=== PATIENT | female | born 1950 | race Hispanic/Latino ===

== ENCOUNTER 2022-08-01 09:20 | Observation (INO) | payer MEDICARE ==
[~2022-08-01] VITALS: Ht 149.9 cm; Wt 108.7 kg
[2022-08-01 00:03] VITALS: BP 135/73
[~2022-08-01 09:20] MED LIST: BUDE10.2 IH; DICY10 PO; FLUT16H NASAL; GEMF600T89 PO; HYDR25TA PO; INSLAN SQ; LEVO50TA11 PO; LISI40TA9 PO; METO100T14 PO; NITR0.4T50 SL; ROSU10TA22 PO; TRAM50TA4 PO; ZOLP10TA2 PO
[2022-08-01] MEDS ORDERED: NITROGLYCERIN 0.4 MG SL TAB SL PRN (10:00)
[2022-08-01] MEDS ORDERED: CLOPIDOGREL 300MG TAB PO ONE (10:00)
[2022-08-01 10:06] LABS: BASOPHILS % (AUTO) 0.9 % (0.0-5.0); EOSINOPHILS % (AUTO) 2.8 % (0.0-8.0); HEMATOCRIT 37.6 % (36-48); LYMPHOCYTES % (AUTO) 15.5 % (21.0-51.0); MEAN CORPUSCULAR HGB CONC 32.7 g/dL (32.0-36.0); MEAN CORPUSCULAR VOLUME 82.6 fL (79-99); MONOCYTES % (AUTO) 7.4 % (3.0-13.0); PLATELET COUNT (AUTO) 340 K/uL (130-400); RED BLOOD CELL COUNT(AUTO) 4.55 MIL/uL (4.00-5.50); RED CELL DISTRIBUTION WIDTH 14.1 % (11.0-15.5); WHITE BLOOD COUNT (AUTO) 9.1 K/uL (4.8-10.8)
[2022-08-01] MEDS ORDERED: METO25TA6 PO (10:07)
[2022-08-01] MEDS ORDERED: AMLO-258 PO (10:07)
[2022-08-01] MEDS ORDERED: SIMV40TA59 PO (10:07)
[2022-08-01] MEDS ORDERED: METF-446 PO (10:07)
[2022-08-01 10:17] LABS: CREATININE 1.2 mg/dL (0.5-1.5); POTASSIUM 3.4 mmol/L (3.5-5.1)
[2022-08-01 10:22] LABS: ALBUMIN 3.1 g/dL (3.5-5.0); TOTAL PROTEIN, SERUM 7.5 g/dL (6.0-8.3)
[2022-08-01 10:25] LABS: INR 0.98 (0.85-1.15); PROTHROMBIN TIME 10.7 SEC (9.6-11.6)
[2022-08-01 10:26] LABS: PARTIAL THROMBOPLASTIN TIME 26.8 SEC (26.3-35.5)
[2022-08-01] MEDS ORDERED: MAGNESIUM 2GM PREMIX 50ML 50 ML IV PRN (14:00)
[2022-08-01] MEDS ORDERED: POTASSIUM CHLORIDE 10% ELIXIR 20 MEQ/15 ML UDCUP PO PRN (14:00)
[2022-08-01] MEDS ORDERED: LIDOCAINE HCL-MPF 1% 2ML VIAL IV PRN (14:00)
[2022-08-01] MEDS ORDERED: KCL 20 MEQ ERTAB PO PRN (14:00)
[2022-08-01] MEDS ORDERED: POTASSIUM CHLORIDE 20MEQ/100ML 100 ML IV PRN (14:00)
[2022-08-01 16:00] VITALS: BP 137/77
[2022-08-01] MEDS: INSULIN HUMULIN R 100 UNIT/ML 3ML SQ SCH ×2 (18:10→22:03)
[2022-08-01 19:03] VITALS: BP 151/74
[2022-08-02 00:03] VITALS: BP 135/73
[2022-08-02 03:03] VITALS: BP 130/64
[2022-08-02 04:17] LABS: CHOLESTEROL 209 mg/dL (<200); HDL CHOLESTEROL 42 mg/dL (35-85); LDL DIRECT 133 mg/dL (0-99); TRIGLYCERIDES 231 mg/dL (30-200)
[2022-08-02] MEDS: INSULIN HUMULIN R 100 UNIT/ML 3ML SQ SCH ×4 (06:37→21:48)
[2022-08-02] MEDS: PREDNISONE 20 MG TABLET PO SCH ×2 (07:49→21:39)
[2022-08-02] MEDS: CLOPIDOGREL 75MG TAB PO SCH (07:49)
[2022-08-02 08:14] VITALS: BP 115/57
[2022-08-02 11:36] VITALS: BP 135/58
[2022-08-02 12:14] LABS: CREATININE 1.1 mg/dL (0.5-1.5); POTASSIUM 3.2 mmol/L (3.5-5.1)
[2022-08-02 13:00] LABS: ABG BASE EXCESS -2.9 mmol/L (-2.0-3.0); ABG HCO3 19.2 mmol/L (21.0-28.0); ABG OXYGEN SATURATION 96.3 % (95.0-99.0); ABG PCO2 27 mmHg (32-45)
[2022-08-02 14:31] LABS: APPEARANCE,URINE CLOUDY (CLEAR); BILIRUBIN,URINE NEGATIVE (NEGATIVE); COLOR,URINE YELLOW (YELLOW); GLUCOSE, URINE (UA) >=1000 mg/dL (NEGATIVE); KETONES,URINE 40 mg/dL (NEGATIVE); LEUKOCYTE ESTERASE ,URINE NEGATIVE Leu/uL (NEGATIVE); NITRATE,URINE NEGATIVE (NEGATIVE); OCCULT BLOOD,URINE NEGATIVE (NEGATIVE); PROTEIN,URINE 20 mg/dL (NEGATIVE); UROBILINOGEN,URINE 0.2 mg/dL (0.2-1.0)
[2022-08-02 14:56] LABS: BACTERIA,URINE RARE /HPF (None Seen); MUCUS,URINE RARE LPF (None Seen); SQUAMOUS EPITHELIAL CELL,UR MOD /HPF (0-2); URIC ACID CRYSTALS,URINE RARE /LPF (None Seen)
[2022-08-02 15:59] VITALS: BP 161/98
[2022-08-02 21:00] VITALS: BP 155/71
[2022-08-02] MEDS: INSULIN GLARGINE 100 UNITS/ML 10 ML VIAL SQ SCH (21:45)
[2022-08-03] VITALS (14 sets, daily range): BP systolic 100–147; BP diastolic 47–94
[2022-08-03] MEDS: INSULIN GLARGINE 100 UNITS/ML 10 ML VIAL SQ SCH ×2 (07:30→20:08)
[2022-08-03] MEDS: INSULIN HUMULIN R 100 UNIT/ML 3ML SQ SCH ×4 (07:31→20:07)
[2022-08-03] MEDS: METOPROLOL TARTRATE 25 MG TAB PO SCH (09:00)
[2022-08-03] MEDS: PREDNISONE 20 MG TABLET PO SCH ×2 (09:00→20:16)
[2022-08-03] MEDS: FAMOTIDINE 20MG TAB PO SCH (09:00)
[2022-08-03] MEDS: ENOXAPARIN SODIUM 30 MG/0.3 ML SQ SCH (09:00)
[2022-08-03] MEDS: CLOPIDOGREL 75MG TAB PO SCH (09:00)
[2022-08-03] MEDS ORDERED: SOLU-MEDROL 125MG VIAL IVP SCH (10:00)
[2022-08-03] MEDS ORDERED: DIPHENHYDRAMINE HCL 25 MG CAPSULE PO SCH (10:00)
[2022-08-03] MEDS: DiphenhydrAMINE HCL 50 MG/ML VIAL IV SCH (10:00)
[2022-08-03] MEDS ORDERED: SODIUM CHLORIDE 30 ML DROPS NS PRN (12:00)
[2022-08-03] MEDS ORDERED: NICARDIPINE 25MG INJ IV ONE (13:43)
[2022-08-03] MEDS ORDERED: IOHEXOL-350 50ML VIAL IV ONE (13:43)
[2022-08-03] MEDS ORDERED: NITROGLYCERIN 50MG VIAL ONE (13:43)
[2022-08-03] MEDS ORDERED: LIDOCAINE HCL 1% 20 ML VIAL ONE (13:43)
[2022-08-03] MEDS ORDERED: HEPARIN 10,000 UNIT/10ML (1,000 UNIT/ML) VIAL ONE (13:43)
[2022-08-03] MEDS ORDERED: IOHEXOL 350 MG/ML 100ML INFUS..BTL IV ONE (13:43)
[2022-08-03] MEDS ORDERED: FENTANYL CITRATE PF 50 MCG/1 ML 2ML VIAL ONE ×2 (13:44→14:25)
[2022-08-03] MEDS ORDERED: MIDAZOLAM HCL 1 MG/ML 2ML VIAL ONE (13:44)
[2022-08-03] MEDS ORDERED: KETOROLAC 30MG VIAL (30MG/ML) ONE (14:31)
[2022-08-03] MEDS ORDERED: LABETALOL 20MG SYG IV ONE ×5 (14:31→14:41)
[2022-08-03] MEDS ORDERED: KETOROLAC 15MG/ML VIAL (15MG/ML) ONE (14:32)
[2022-08-03] MEDS ORDERED: ONDANSETRON 4MG INJ ONE (14:32)
[2022-08-03] MEDS ORDERED: LABETALOL 20MG VIAL IV ONE (14:42)
[2022-08-03] MEDS ORDERED: 0.9%NACL 1000ML 1,000 ML IV SCH (15:00)
[2022-08-03] MEDS: FLUTICASONE PROPIONATE 50MCG/SPRAY 16 GM BOTTLE EN SCH (20:16)
[2022-08-03] MEDS: GUAIFENESIN 600 MG TABLET.ER PO SCH (20:16)
[2022-08-04 03:29] LABS: HEMATOCRIT 32.4 % (36-48); MEAN CORPUSCULAR HEMOGLOBIN 27.5 pg (27.0-33.0); MEAN CORPUSCULAR HGB CONC 32.7 g/dL (32.0-36.0); MEAN CORPUSCULAR VOLUME 83.9 fL (79-99); RED BLOOD CELL COUNT(AUTO) 3.86 MIL/uL (4.00-5.50); RED CELL DISTRIBUTION WIDTH 14.6 % (11.0-15.5); WHITE BLOOD COUNT (AUTO) 9.6 K/uL (4.8-10.8)
[2022-08-04 03:46] LABS: CREATININE 1.5 mg/dL (0.5-1.5); MAGNESIUM 1.6 mg/dL (1.80-2.40); PHOSPHORUS 3.8 mg/dL (2.5-4.9); POTASSIUM 4.7 mmol/L (3.5-5.1)
[2022-08-04] MEDS ORDERED: INSULIN HUMULIN R 100 UNIT/ML 3ML SQ ONE (04:18)
[2022-08-04] MEDS ORDERED: MAGNESIUM 2GM PREMIX 50ML 50 ML IV PRN (04:30)
[2022-08-04 05:00] VITALS: BP 101/67
[2022-08-04] MEDS: INSULIN HUMULIN R 100 UNIT/ML 3ML SQ SCH ×2 (06:23→11:14)
[2022-08-04] MEDS: INSULIN GLARGINE 100 UNITS/ML 10 ML VIAL SQ SCH (06:24)
[2022-08-04] MEDS: DiphenhydrAMINE HCL 50 MG/ML VIAL IV SCH (07:23)
[2022-08-04] MEDS ORDERED: INSULIN GLARGINE 100 UNITS/ML 10 ML VIAL SQ SCH (07:30)
[2022-08-04 08:00] VITALS: BP 130/73
[2022-08-04] MEDS: FAMOTIDINE 20MG TAB PO SCH (09:01)
[2022-08-04] MEDS: CLOPIDOGREL 75MG TAB PO SCH (09:01)
[2022-08-04] MEDS: PREDNISONE 20 MG TABLET PO SCH (09:02)
[2022-08-04] MEDS: GUAIFENESIN 600 MG TABLET.ER PO SCH (09:02)
[2022-08-04] MEDS: METOPROLOL TARTRATE 25 MG TAB PO SCH (09:02)
[2022-08-04] MEDS: ENOXAPARIN SODIUM 30 MG/0.3 ML SQ SCH (09:05)
[2022-08-04] MEDS: FLUTICASONE PROPIONATE 50MCG/SPRAY 16 GM BOTTLE EN SCH (09:06)
[2022-08-04 11:23] VITALS: BP 158/81
== END 2022-08-04 12:02 | disposition home or self-care (01) ==
LOC: EDH 09:20 → DIRECT 10:14 → INTOOBSV 10:14 → 2AH 14:55
PROVIDERS: ADMIT Internal Medicine; ATTEND Internal Medicine
DX: R06.00 Dyspnea, unspecified (principal); R00.2 Palpitations; R42 Dizziness and giddiness; I10 Essential (primary) hypertension; E78.5 Hyperlipidemia, unspecified; E11.65 Type 2 diabetes mellitus with hyperglycemia; G47.33 Obstructive sleep apnea (adult) (pediatric); J44.9 Chronic obstructive pulmonary disease, unspecified; E66.01 Morbid (severe) obesity due to excess calories; I26.99 Other pulmonary embolism without acute cor pulmonale; W06.XXXA Fall from bed, initial encounter; Y93.89 Activity, other specified; Y92.89 Other specified places as the place of occurrence of the external cause; Z68.42 Body mass index [BMI] 45.0-49.9, adult; Z88.1 Allergy status to other antibiotic agents; Z91.199 Patient's noncompliance with other medical treatment and regimen due to unspecified reason; Z79.899 Other long term (current) drug therapy
CPT/HCPCS: 84484; 80053; 85025; 85610; 85730; 82948 ×14; 36415 ×3; 71045; 93306; 93005; 83036; 82435; 82947; 84132; 84295; 80061; 80048 ×2; 82803; 83880; 85378; 85018; 87088; 83605; 81001; 73030; 78580; 93970; 36600; 93458; 96365; 96366; 96372; 83735; 84100; 85027; 71250; 97161; 97116; 94760; G0378 ×70; J1815 ×12; A9540; C1887; C1894 ×3; C1760; C1769; Q9965; J1200; J3010 ×2; J2930; J3490 ×3; J1644 ×2; J2250; J2405; J1885; Q9967; J3475; J1650; 99156; 99157

== ENCOUNTER 2022-10-17 15:46 | Emergency (ER) | payer MEDICARE, OTHER ==
[~2022-10-17] VITALS: Ht 149.9 cm; Wt 98.0 kg
[~2022-10-17 15:46] MED LIST changes: -BUDE10.2 IH; -DICY10 PO; -FLUT16H NASAL; -GEMF600T89 PO; -HYDR25TA PO; -INSLAN SQ; -LEVO50TA11 PO; -LISI40TA9 PO; +METF-446 PO; -METO100T14 PO; +METO25TA6 PO; -NITR0.4T50 SL; -ROSU10TA22 PO; +SIMV40TA59 PO; -TRAM50TA4 PO; -ZOLP10TA2 PO
[2022-10-17 16:01] VITALS: BP 152/72
[2022-10-17 17:02] LABS: BASOPHILS % (AUTO) 0.5 % (0.0-5.0); EOSINOPHILS % (AUTO) 1.4 % (0.0-8.0); HEMATOCRIT 43.4 % (36-48); LYMPHOCYTES % (AUTO) 16.9 % (21.0-51.0); MEAN CORPUSCULAR HEMOGLOBIN 26.4 pg (27.0-33.0); MEAN CORPUSCULAR VOLUME 82.4 fL (79-99); MONOCYTES % (AUTO) 9.2 % (3.0-13.0); NEUTROPHILS % (AUTO) 71.5 % (40.0-77.0); PLATELET COUNT (AUTO) 413 K/uL (130-400); RED BLOOD CELL COUNT(AUTO) 5.27 MIL/uL (4.00-5.50); RED CELL DISTRIBUTION WIDTH 14.4 % (11.0-15.5); WHITE BLOOD COUNT (AUTO) 9.7 K/uL (4.8-10.8)
[2022-10-17 17:15] LABS: CREATININE 1.3 mg/dL (0.5-1.5); POTASSIUM 3.4 mmol/L (3.5-5.1)
[2022-10-17 17:19] LABS: ALBUMIN 3.1 g/dL (3.5-5.0); TOTAL PROTEIN, SERUM 7.1 g/dL (6.0-8.3)
[2022-10-17] MEDS ORDERED: 0.9%NACL 1000ML 1,000 ML IV ONE (18:30)
[2022-10-17] MEDS ORDERED: MORPHINE 4 MG SYG IVP ONE (18:30)
[2022-10-17] MEDS ORDERED: ONDANSETRON 4MG INJ IVP ONE (18:30)
[2022-10-17] MEDS ORDERED: FAMOTIDINE 20MG VIAL IV ONE (18:30)
[2022-10-17] MEDS ORDERED: DiphenhydrAMINE HCL 50 MG/ML VIAL IV ONE (20:30)
[2022-10-17] MEDS ORDERED: METOCLOPRAMIDE 10 MG/2 ML VIAL IVP ONE (20:30)
[2022-10-17 21:30] LABS: APPEARANCE,URINE CLOUDY (CLEAR); BILIRUBIN,URINE NEGATIVE (NEGATIVE); COLOR,URINE YELLOW (YELLOW); GLUCOSE, URINE (UA) NEGATIVE (NEGATIVE); KETONES,URINE 10 mg/dL (NEGATIVE); LEUKOCYTE ESTERASE ,URINE 250 Leu/uL (NEGATIVE); NITRATE,URINE NEGATIVE (NEGATIVE); OCCULT BLOOD,URINE NEGATIVE (NEGATIVE); PH,URINE 5.5 (5.0-8.0); PROTEIN,URINE 50 mg/dL (NEGATIVE)
[2022-10-17] MEDS ORDERED: 0.9% NACL 250ML 250 ML IV ONE (21:30)
[2022-10-17 21:34] LABS: BACTERIA,URINE MOD /HPF (None Seen); HYALINE CASTS, URINE 26-50 /LPF (0-1 /LPF); MUCUS,URINE MANY LPF (None Seen); SQUAMOUS EPITHELIAL CELL,UR MANY /HPF (0-2); TRANSITIONAL EPI CELLS,URINE RARE /HPF (None Seen)
[2022-10-17] MEDS ORDERED: ONDA4TAB10 PO (21:48)
[2022-10-17] MEDS ORDERED: MACR100 PO (21:48)
[2022-10-17] MEDS ORDERED: NITROFURANTOIN MONOHYD/M-CRYST 100 MG CAPSULE PO ONE (22:00)
== END 2022-10-17 22:01 | disposition home or self-care (01) ==
LOC: EDH 15:46
DX: N39.0 Urinary tract infection, site not specified (principal); R11.2 Nausea with vomiting, unspecified; R19.7 Diarrhea, unspecified; E11.9 Type 2 diabetes mellitus without complications; E78.00 Pure hypercholesterolemia, unspecified; Z90.49 Acquired absence of other specified parts of digestive tract; Z79.899 Other long term (current) drug therapy; Z79.84 Long term (current) use of oral hypoglycemic drugs; Z88.1 Allergy status to other antibiotic agents; Z88.2 Allergy status to sulfonamides; Z88.8 Allergy status to other drugs, medicaments and biological substances; Z20.822 Contact with and (suspected) exposure to COVID-19
CPT/HCPCS: 99285; 74176; 96374; 96375; 96361; 87635; 80053; 83690; 85025; 87088; 87804 ×2; 81001; 36415; C9803; J1200; J3490; J7030; J2405; J2270; J2765; J7050

== ENCOUNTER 2022-10-22 07:07 | Inpatient (IN) | payer OTHER ==
[~2022-10-22] VITALS: Ht 149.9 cm; Wt 100.2 kg
[~2022-10-22 07:07] MED LIST changes: +MACR100 PO; +ONDA4TAB10 PO
[2022-10-22] MEDS ORDERED: ONDANSETRON 4MG INJ IVP ONE (07:30)
[2022-10-22] MEDS ORDERED: 0.9%NACL 1000ML 1,000 ML IV ONE (07:30)
[2022-10-22 07:41] LABS: EOSINOPHILS % (AUTO) 1.7 % (0.0-8.0); HEMATOCRIT 40.7 % (36-48); MEAN CORPUSCULAR HEMOGLOBIN 25.9 pg (27.0-33.0); MEAN CORPUSCULAR HGB CONC 32.2 g/dL (32.0-36.0); MEAN CORPUSCULAR VOLUME 80.6 fL (79-99); MONOCYTES % (AUTO) 14.2 % (3.0-13.0); NEUTROPHILS % (AUTO) 53.5 % (40.0-77.0); PLATELET COUNT (AUTO) 379 K/uL (130-400); RED BLOOD CELL COUNT(AUTO) 5.05 MIL/uL (4.00-5.50); RED CELL DISTRIBUTION WIDTH 14.8 % (11.0-15.5)
[2022-10-22] MEDS: BENZONATATE 100 MG CAPSULE PO SCH (08:14)
[2022-10-22 08:21] LABS: ALBUMIN 2.8 g/dL (3.5-5.0); CREATININE 1.4 mg/dL (0.5-1.5)
[2022-10-22 08:30] LABS: POTASSIUM 2.7 mmol/L (3.5-5.1)
[2022-10-22 08:36] LABS: TOTAL PROTEIN, SERUM 6.7 g/dL (6.0-8.3)
[2022-10-22] MEDS ORDERED: 0.9%NACL 1000ML 1,000 ML IV SCH ×2 (09:00→11:30)
[2022-10-22] MEDS ORDERED: POTASSIUM CHLORIDE 20 MEQ/100 ML BAG IV SCH (09:00)
[2022-10-22] MEDS ORDERED: FENTANYL CITRATE PF 50 MCG/1 ML 2ML VIAL IVP ONE (09:00)
[2022-10-22] MEDS ORDERED: ACETAMINOPHEN 325 MG TAB PO PRN ×2 (11:30)
[2022-10-22] MEDS ORDERED: HYDRALAZINE 20MG/ML VIAL IV PRN (13:30)
[2022-10-22] MEDS ORDERED: LIDOCAINE HCL-MPF 1% 2ML VIAL IV PRN (13:30)
[2022-10-22] MEDS ORDERED: MAGNESIUM 2GM PREMIX 50ML 50 ML IV PRN (13:30)
[2022-10-22] MEDS ORDERED: MORPHINE 2 MG SYG IVP PRN (13:30)
[2022-10-22] MEDS ORDERED: DEXTROSE 50%-WATER 50 ML DISP.SYRIN IV PRN (13:30)
[2022-10-22] MEDS ORDERED: GLUCAGON 1MG KIT 1 MG ML IM PRN (13:30)
[2022-10-22] MEDS: ONDANSETRON 4MG INJ IV PRN ×2 (13:41→22:35)
[2022-10-22] MEDS: POTASSIUM CHLORIDE 20MEQ/100ML 100 ML IV PRN (13:42)
[2022-10-22] MEDS: 0.9%NACL 1000ML 1,000 ML IV SCH (13:43)
[2022-10-22] MEDS ORDERED: METOCLOPRAMIDE 10 MG/2 ML VIAL ONE (14:40)
[2022-10-22] MEDS: METOCLOPRAMIDE 10 MG/2 ML VIAL IVP SCH (14:42)
[2022-10-22 15:00] VITALS: BP 143/71
[2022-10-22] MEDS: INSULIN HUMULIN R 100 UNIT/ML 3ML SQ SCH ×2 (16:30→20:47)
[2022-10-22 20:00] VITALS: BP 147/68
[2022-10-22] MEDS ORDERED: FAMOTIDINE 20MG VIAL IV SCH (21:00)
[2022-10-23] VITALS: BP 162/96
[2022-10-23] MEDS: 0.9%NACL 1000ML 1,000 ML IV SCH (02:20)
[2022-10-23 04:00] VITALS: BP 153/83
[2022-10-23] MEDS: INSULIN HUMULIN R 100 UNIT/ML 3ML SQ SCH ×4 (06:07→21:00)
[2022-10-23] MEDS: METOCLOPRAMIDE 10 MG/2 ML VIAL IVP SCH ×3 (06:21→17:28)
[2022-10-23 06:59] LABS: EOSINOPHILS % (AUTO) 3.6 % (0.0-8.0); HEMATOCRIT 37.1 % (36-48); LYMPHOCYTES % (AUTO) 23.6 % (21.0-51.0); MEAN CORPUSCULAR HEMOGLOBIN 26.4 pg (27.0-33.0); MEAN CORPUSCULAR HGB CONC 31.5 g/dL (32.0-36.0); MEAN CORPUSCULAR VOLUME 83.7 fL (79-99); NEUTROPHILS % (AUTO) 60.2 % (40.0-77.0); PLATELET COUNT (AUTO) 296 K/uL (130-400); RED BLOOD CELL COUNT(AUTO) 4.43 MIL/uL (4.00-5.50); RED CELL DISTRIBUTION WIDTH 15.1 % (11.0-15.5); WHITE BLOOD COUNT (AUTO) 6.8 K/uL (4.8-10.8)
[2022-10-23 07:18] LABS: ALBUMIN 2.4 g/dL (3.5-5.0); CREATININE 1.1 mg/dL (0.5-1.5); TOTAL PROTEIN, SERUM 5.6 g/dL (6.0-8.3)
[2022-10-23 07:25] LABS: POTASSIUM 2.9 mmol/L (3.5-5.1)
[2022-10-23 08:00] VITALS: BP 146/79
[2022-10-23] MEDS: BENZONATATE 100 MG CAPSULE PO SCH (08:30)
[2022-10-23] MEDS: ENOXAPARIN SODIUM 30 MG/0.3 ML SQ SCH (09:00)
[2022-10-23] MEDS: PANTOPRAZOLE 40 MG/VIAL IVP SCH (10:16)
[2022-10-23 12:00] VITALS: BP 161/79
[2022-10-23 14:56] LABS: APPEARANCE,URINE CLOUDY (CLEAR); BILIRUBIN,URINE NEGATIVE (NEGATIVE); COLOR,URINE YELLOW (YELLOW); GLUCOSE, URINE (UA) NEGATIVE (NEGATIVE); KETONES,URINE 20 mg/dL (NEGATIVE); LEUKOCYTE ESTERASE ,URINE NEGATIVE Leu/uL (NEGATIVE); NITRATE,URINE NEGATIVE (NEGATIVE); OCCULT BLOOD,URINE NEGATIVE (NEGATIVE); PROTEIN,URINE 10 mg/dL (NEGATIVE); UROBILINOGEN,URINE 0.2 mg/dL (0.2-1.0)
[2022-10-23 15:00] LABS: BACTERIA,URINE RARE /HPF (None Seen); MUCUS,URINE RARE LPF (None Seen); SQUAMOUS EPITHELIAL CELL,UR FEW /HPF (0-2)
[2022-10-23 16:00] VITALS: BP 183/84
[2022-10-23] MEDS: [UNRECOGNIZED DRUG - OTHER] IV SCH (16:45)
[2022-10-23] MEDS: POTASSIUM CHLORIDE IV SCH (16:45)
[2022-10-23] MEDS: METOPROLOL TARTRATE 25 MG TAB PO SCH (17:28)
[2022-10-23 21:28] VITALS: BP 153/66
[2022-10-23] MEDS: ONDANSETRON 4MG INJ IV PRN (22:58)
[2022-10-24 00:28] VITALS: BP_SYST 137; BP_SYST 94; BP_DIAS 56; BP_DIAS 57
[2022-10-24 05:28] VITALS: BP 148/64
[2022-10-24 05:59] LABS: BASOPHILS % (AUTO) 0.6 % (0.0-5.0); EOSINOPHILS % (AUTO) 2.1 % (0.0-8.0); HEMATOCRIT 35.2 % (36-48); MEAN CORPUSCULAR HEMOGLOBIN 26.2 pg (27.0-33.0); MEAN CORPUSCULAR HGB CONC 32.1 g/dL (32.0-36.0); MEAN CORPUSCULAR VOLUME 81.5 fL (79-99); MONOCYTES % (AUTO) 9.5 % (3.0-13.0); NEUTROPHILS % (AUTO) 66.1 % (40.0-77.0); PLATELET COUNT (AUTO) 298 K/uL (130-400); RED BLOOD CELL COUNT(AUTO) 4.32 MIL/uL (4.00-5.50); RED CELL DISTRIBUTION WIDTH 15.2 % (11.0-15.5); WHITE BLOOD COUNT (AUTO) 8.9 K/uL (4.8-10.8)
[2022-10-24] MEDS: METOCLOPRAMIDE 10 MG/2 ML VIAL IVP SCH ×3 (06:20→17:00)
[2022-10-24] MEDS: INSULIN HUMULIN R 100 UNIT/ML 3ML SQ SCH ×4 (06:21→21:00)
[2022-10-24 08:00] VITALS: BP 158/72
[2022-10-24 08:18] LABS: ALBUMIN 2.3 g/dL (3.5-5.0); CRP QUANTITATIVE 49.7 mg/L (0.00-9.0); MAGNESIUM 1.5 mg/dL (1.80-2.40); TOTAL PROTEIN, SERUM 5.4 g/dL (6.0-8.3)
[2022-10-24 08:21] LABS: POTASSIUM 2.7 mmol/L (3.5-5.1)
[2022-10-24] MEDS: BENZONATATE 100 MG CAPSULE PO SCH (08:30)
[2022-10-24] MEDS: PANTOPRAZOLE 40 MG/VIAL IVP SCH (10:35)
[2022-10-24] MEDS: METOPROLOL TARTRATE 25 MG TAB PO SCH (10:35)
[2022-10-24] MEDS: ENOXAPARIN SODIUM 30 MG/0.3 ML SQ SCH (10:35)
[2022-10-24 12:00] VITALS: BP 148/68
[2022-10-24] MEDS ORDERED: KCL 20 MEQ ERTAB PO SCH (12:30)
[2022-10-24 16:00] VITALS: BP 159/55
[2022-10-24 19:30] VITALS: BP 146/56
[2022-10-24] MEDS: POTASSIUM CHLORIDE 20MEQ/100ML 100 ML IV PRN (21:19)
[2022-10-25] VITALS (26 sets, daily range): BP systolic 123–193; BP diastolic 48–129
[2022-10-25] MEDS: POTASSIUM CHLORIDE IV SCH (04:22)
[2022-10-25] MEDS: [UNRECOGNIZED DRUG - OTHER] IV SCH (04:22)
[2022-10-25] MEDS: INSULIN HUMULIN R 100 UNIT/ML 3ML SQ SCH ×3 (05:39→16:30)
[2022-10-25] MEDS ORDERED: LIDOCAINE PF 100MG/5ML (2%) SYRINGE 5ML ONE (07:03)
[2022-10-25] MEDS ORDERED: PROPOFOL 10 MG/ML 20ML VIAL IV ONE (07:03)
[2022-10-25] MEDS ORDERED: SUCCINYLCHOLINE 200MG/10ML SYR ONE (07:03)
[2022-10-25 07:19] LABS: PROTHROMBIN TIME 10.9 SEC (9.6-11.6)
[2022-10-25 07:20] LABS: PARTIAL THROMBOPLASTIN TIME 28.5 SEC (26.3-35.5)
[2022-10-25 07:21] LABS: ALBUMIN 2.3 g/dL (3.5-5.0); CREATININE 0.9 mg/dL (0.5-1.5); MAGNESIUM 1.3 mg/dL (1.80-2.40); POTASSIUM 3.2 mmol/L (3.5-5.1); TOTAL PROTEIN, SERUM 5.7 g/dL (6.0-8.3)
[2022-10-25] MEDS ORDERED: MEPERIDINE-PF 25 MG/ML SYG ONE (08:09)
[2022-10-25] MEDS ORDERED: KCL 20 MEQ ERTAB PO ONE (09:23)
[2022-10-25] MEDS: METOCLOPRAMIDE 10 MG/2 ML VIAL IVP SCH ×3 (09:25→17:24)
[2022-10-25] MEDS: PANTOPRAZOLE 40 MG/VIAL IVP SCH (09:25)
[2022-10-25] MEDS: METOPROLOL TARTRATE 25 MG TAB PO SCH (09:26)
[2022-10-25] MEDS: BENZONATATE 100 MG CAPSULE PO SCH (09:26)
[2022-10-25] MEDS: ENOXAPARIN SODIUM 30 MG/0.3 ML SQ SCH (09:28)
[2022-10-25] MEDS ORDERED: KCL 20 MEQ ERTAB PO PRN (09:30)
[2022-10-25] MEDS ORDERED: POTASSIUM CHLORIDE 20MEQ/100ML 100 ML IV PRN (09:30)
[2022-10-25] MEDS ORDERED: LIDOCAINE HCL-MPF 1% 2ML VIAL IV PRN (09:30)
[2022-10-25] MEDS ORDERED: POTASSIUM CHLORIDE 10% ELIXIR 20 MEQ/15 ML UDCUP PO PRN (09:30)
[2022-10-25] MEDS ORDERED: 0.9%NACL 1000ML 1,000 ML IV ONE (10:16)
[2022-10-25] MEDS ORDERED: METO10TA3 PO (13:15)
== END 2022-10-25 18:53 | disposition home or self-care (01) | DRG 73 ==
LOC: EDH 07:07 → EDHIP 11:27 → 3DH 14:24
PROVIDERS: ADMIT Hospitalist; ATTEND Hospitalist
PROC: 0DB68ZX Excision of Stomach, Via Natural or Artificial Opening Endoscopic, Diagnostic (ICD-10-PCS; principal; 2022-10-25)
DX: E11.43 Type 2 diabetes mellitus with diabetic autonomic (poly)neuropathy (principal); E43 Unspecified severe protein-calorie malnutrition; Z68.41 Body mass index [BMI] 40.0-44.9, adult; N39.0 Urinary tract infection, site not specified; E87.6 Hypokalemia; E83.42 Hypomagnesemia; Z20.822 Contact with and (suspected) exposure to COVID-19; K29.70 Gastritis, unspecified, without bleeding; K44.9 Diaphragmatic hernia without obstruction or gangrene; E11.65 Type 2 diabetes mellitus with hyperglycemia; E66.01 Morbid (severe) obesity due to excess calories; K31.84 Gastroparesis; E78.00 Pure hypercholesterolemia, unspecified; M19.90 Unspecified osteoarthritis, unspecified site; E86.0 Dehydration; Z83.3 Family history of diabetes mellitus; Z82.49 Family history of ischemic heart disease and other diseases of the circulatory system; Z79.4 Long term (current) use of insulin; Z88.2 Allergy status to sulfonamides; Z88.8 Allergy status to other drugs, medicaments and biological substances
CPT/HCPCS: 36415; 43239; 71045; 74018; 74176; 78264; 80053; 81001; 82010; 82550; 82948; 83735; 83874; 84132; 84484; 85025; 85610; 85730; 86140; 87635; 87804; 93005; A9541; C9113; C9803; G0378; J0330; J0360; J1650; J2001; J2175; J2405; J2704; J2765; J3010; J3475; J3480; J3490; J7030

== ENCOUNTER 2022-10-26 15:11 | Inpatient (IN) | payer OTHER ==
[~2022-10-26] VITALS: Ht 149.9 cm; Wt 100.3 kg
[~2022-10-26 15:11] MED LIST changes: -MACR100 PO; +METO10TA3 PO
[2022-10-26] MEDS ORDERED: METOCLOPRAMIDE 10 MG/2 ML VIAL IVP ONE (16:00)
[2022-10-26 16:05] LABS: BASOPHILS % (AUTO) 0.7 % (0.0-5.0); EOSINOPHILS % (AUTO) 1.7 % (0.0-8.0); HEMATOCRIT 37.6 % (36-48); LYMPHOCYTES % (AUTO) 15.5 % (21.0-51.0); MEAN CORPUSCULAR HEMOGLOBIN 26.5 pg (27.0-33.0); MEAN CORPUSCULAR HGB CONC 32.4 g/dL (32.0-36.0); MEAN CORPUSCULAR VOLUME 81.7 fL (79-99); MONOCYTES % (AUTO) 9.5 % (3.0-13.0); NEUTROPHILS % (AUTO) 72.1 % (40.0-77.0); PLATELET COUNT (AUTO) 275 K/uL (130-400); RED CELL DISTRIBUTION WIDTH 15.4 % (11.0-15.5); WHITE BLOOD COUNT (AUTO) 7.7 K/uL (4.8-10.8)
[2022-10-26 16:13] LABS: CREATININE 0.9 mg/dL (0.5-1.5); POTASSIUM 3.1 mmol/L (3.5-5.1)
[2022-10-26 16:25] LABS: ALBUMIN 2.4 g/dL (3.5-5.0); TOTAL PROTEIN, SERUM 5.7 g/dL (6.0-8.3)
[2022-10-26 16:42] LABS: APPEARANCE,URINE CLEAR (CLEAR); BILIRUBIN,URINE NEGATIVE (NEGATIVE); COLOR,URINE LIGHT-YELLOW (YELLOW); GLUCOSE, URINE (UA) NEGATIVE (NEGATIVE); KETONES,URINE 10 mg/dL (NEGATIVE); LEUKOCYTE ESTERASE ,URINE NEGATIVE Leu/uL (NEGATIVE); NITRATE,URINE NEGATIVE (NEGATIVE); OCCULT BLOOD,URINE NEGATIVE (NEGATIVE); PH,URINE 6.5 (5.0-8.0); PROTEIN,URINE NEGATIVE (NEGATIVE); UROBILINOGEN,URINE 0.2 mg/dL (0.2-1.0)
[2022-10-26 17:00] LABS: MUCUS,URINE RARE LPF (None Seen); SQUAMOUS EPITHELIAL CELL,UR RARE /HPF (0-2); WBC,URINE 0-1 /HPF (0-1)
[2022-10-26] MEDS ORDERED: KCL 20 MEQ ERTAB PO ONE (17:00)
[2022-10-26] MEDS: MAGNESIUM 2GM PREMIX 50ML 50 ML IV SCH ×3 (17:28→22:27)
[2022-10-26] MEDS ORDERED: GLUCAGON 1MG KIT 1 MG ML IM PRN (20:00)
[2022-10-26] MEDS ORDERED: DEXTROSE 50%-WATER 50 ML DISP.SYRIN IV PRN (20:00)
[2022-10-26] MEDS: 0.9%NACL 1000ML 1,000 ML IV SCH ×2 (20:02→21:57)
[2022-10-26] MEDS: INSULIN HUMULIN R 100 UNIT/ML 3ML SQ SCH (20:08)
[2022-10-26 21:40] VITALS: BP 173/80
[2022-10-26 23:56] VITALS: BP 129/64
[2022-10-27] MEDS ORDERED: NALO25TA4 PO (02:12)
[2022-10-27] MEDS ORDERED: AMLO-258 PO (02:12)
[2022-10-27] MEDS ORDERED: LISI40TA9 PO (02:12)
[2022-10-27 03:34] VITALS: BP 152/68
[2022-10-27 05:24] LABS: BASOPHILS % (AUTO) 0.5 % (0.0-5.0); EOSINOPHILS % (AUTO) 1.7 % (0.0-8.0); HEMATOCRIT 35.9 % (36-48); LYMPHOCYTES % (AUTO) 16.9 % (21.0-51.0); MEAN CORPUSCULAR HEMOGLOBIN 26.1 pg (27.0-33.0); MEAN CORPUSCULAR VOLUME 81.4 fL (79-99); MONOCYTES % (AUTO) 9.3 % (3.0-13.0); NEUTROPHILS % (AUTO) 71.1 % (40.0-77.0); PLATELET COUNT (AUTO) 302 K/uL (130-400); RED BLOOD CELL COUNT(AUTO) 4.41 MIL/uL (4.00-5.50); RED CELL DISTRIBUTION WIDTH 15.4 % (11.0-15.5); WHITE BLOOD COUNT (AUTO) 7.8 K/uL (4.8-10.8)
[2022-10-27 06:15] LABS: ALBUMIN 2.2 g/dL (3.5-5.0); CREATININE 0.9 mg/dL (0.5-1.5); MAGNESIUM 2.5 mg/dL (1.80-2.40); POTASSIUM 3.4 mmol/L (3.5-5.1); TOTAL PROTEIN, SERUM 5.4 g/dL (6.0-8.3)
[2022-10-27] MEDS: INSULIN HUMULIN R 100 UNIT/ML 3ML SQ SCH ×5 (06:33→20:07)
[2022-10-27 08:00] VITALS: BP 124/74
[2022-10-27] MEDS: PANTOPRAZOLE 40 MG/VIAL IVP SCH (08:37)
[2022-10-27] MEDS: ENOXAPARIN SODIUM 40 MG/0.4 ML SYRINGE SQ SCH (08:37)
[2022-10-27] MEDS ORDERED: POTASSIUM CHLORIDE 10% ELIXIR 20 MEQ/15 ML UDCUP PO PRN (09:00)
[2022-10-27] MEDS ORDERED: POTASSIUM CHLORIDE 20MEQ/100ML 100 ML IV PRN (09:00)
[2022-10-27] MEDS ORDERED: LIDOCAINE HCL-MPF 1% 2ML VIAL IV PRN (09:00)
[2022-10-27] MEDS ORDERED: METOCLOPRAMIDE 10 MG TABLET PO SCH (11:30)
[2022-10-27] MEDS: AMLODIPINE 5 MG TAB PO SCH (11:35)
[2022-10-27] MEDS: LISINOPRIL 40 MG TABLET PO SCH (11:35)
[2022-10-27] MEDS: KCL 20 MEQ ERTAB PO PRN ×2 (11:36→15:19)
[2022-10-27 11:39] VITALS: BP 169/72
[2022-10-27] MEDS: METOCLOPRAMIDE 10 MG TABLET PO SCH ×2 (12:00→16:47)
[2022-10-27 15:00] VITALS: BP 124/55
[2022-10-27 19:20] VITALS: BP 138/55
[2022-10-27] MEDS: ACETAMINOPHEN 325 MG TAB PO PRN (20:10)
[2022-10-27 23:07] VITALS: BP 115/80
[2022-10-28] MEDS: ONDANSETRON 4MG INJ IVP PRN ×3 (02:50→18:28)
[2022-10-28 03:40] VITALS: BP 145/71
[2022-10-28] MEDS: INSULIN HUMULIN R 100 UNIT/ML 3ML SQ SCH ×7 (05:46→20:20)
[2022-10-28 05:49] LABS: HEMATOCRIT 37.4 % (36-48); MEAN CORPUSCULAR HEMOGLOBIN 26.3 pg (27.0-33.0); MEAN CORPUSCULAR HGB CONC 31.8 g/dL (32.0-36.0); MEAN CORPUSCULAR VOLUME 82.7 fL (79-99); RED BLOOD CELL COUNT(AUTO) 4.52 MIL/uL (4.00-5.50); RED CELL DISTRIBUTION WIDTH 15.8 % (11.0-15.5); WHITE BLOOD COUNT (AUTO) 5.5 K/uL (4.8-10.8)
[2022-10-28 06:13] LABS: HEMOGLOBIN A1C 9.4 % (4.0-6.0)
[2022-10-28 06:32] LABS: % IRON SATURATION 16.4 % (22-44); CREATININE 0.9 mg/dL (0.5-1.5); MAGNESIUM 1.7 mg/dL (1.80-2.40); POTASSIUM 3.6 mmol/L (3.5-5.1); THYROID STIMULATING HORMONE 1.5 uIU/mL (0.36-3.74)
[2022-10-28 06:59] VITALS: BP 158/77
[2022-10-28] MEDS: METOCLOPRAMIDE 10 MG TABLET PO SCH ×3 (08:00→17:00)
[2022-10-28] MEDS: ENOXAPARIN SODIUM 40 MG/0.4 ML SYRINGE SQ SCH (08:39)
[2022-10-28] MEDS: METOPROLOL TARTRATE 25 MG TAB PO SCH (08:40)
[2022-10-28] MEDS: LISINOPRIL 40 MG TABLET PO SCH (08:40)
[2022-10-28] MEDS: AMLODIPINE 5 MG TAB PO SCH (08:40)
[2022-10-28] MEDS: PANTOPRAZOLE 40 MG/VIAL IVP SCH (08:42)
[2022-10-28] MEDS: ACETAMINOPHEN 325 MG TAB PO PRN (08:42)
[2022-10-28] MEDS: KCL 20 MEQ ERTAB PO PRN (08:49)
[2022-10-28] MEDS: MAGNESIUM 2GM PREMIX 50ML 50 ML IV SCH (09:23)
[2022-10-28 12:00] VITALS: BP 149/67
[2022-10-28] MEDS ORDERED: CETIRIZINE HCL 5 MG TABLET PO SCH (12:30)
[2022-10-28] MEDS ORDERED: ACETAMINOPHEN 325 MG TAB PO PRN (15:00)
[2022-10-28] MEDS: 0.9%NACL 1000ML 1,000 ML IV SCH (15:29)
[2022-10-28] MEDS: CETIRIZINE HCL 5 MG TABLET PO SCH (15:29)
[2022-10-28 16:00] VITALS: BP 142/61
[2022-10-28] MEDS: POLYETHYLENE GLYCOL 3350 17 GM POWD.PACK PO SCH (16:17)
[2022-10-28] MEDS: FLUTICASONE PROPIONATE 50MCG/SPRAY 16 GM BOTTLE EN SCH (17:30)
[2022-10-28 19:00] VITALS: BP 133/53
[2022-10-28 23:46] VITALS: BP 147/75
[2022-10-29] MEDS: ONDANSETRON 4MG INJ IVP PRN ×2 (00:24→06:55)
[2022-10-29 04:00] VITALS: BP 156/61
[2022-10-29 05:40] LABS: HEMATOCRIT 36.8 % (36-48); MEAN CORPUSCULAR HEMOGLOBIN 26.2 pg (27.0-33.0); MEAN CORPUSCULAR HGB CONC 31.5 g/dL (32.0-36.0); MEAN CORPUSCULAR VOLUME 83.3 fL (79-99); RED BLOOD CELL COUNT(AUTO) 4.42 MIL/uL (4.00-5.50); RED CELL DISTRIBUTION WIDTH 15.7 % (11.0-15.5); WHITE BLOOD COUNT (AUTO) 5.7 K/uL (4.8-10.8)
[2022-10-29] MEDS: INSULIN HUMULIN R 100 UNIT/ML 3ML SQ SCH ×7 (05:52→20:55)
[2022-10-29 05:53] LABS: MAGNESIUM 1.6 mg/dL (1.80-2.40); POTASSIUM 3.5 mmol/L (3.5-5.1)
[2022-10-29] MEDS: KCL 20 MEQ ERTAB PO PRN ×2 (06:51→07:59)
[2022-10-29 07:28] LABS: ALBUMIN 2.1 g/dL (3.5-5.0); CRP QUANTITATIVE 18.6 mg/L (0.00-9.0); TOTAL PROTEIN, SERUM 5.4 g/dL (6.0-8.3)
[2022-10-29] MEDS: 0.9%NACL 1000ML 1,000 ML IV SCH (07:56)
[2022-10-29] MEDS: PANTOPRAZOLE 40 MG/VIAL IVP SCH (07:56)
[2022-10-29] MEDS: MAGNESIUM 2GM PREMIX 50ML 50 ML IV SCH (07:56)
[2022-10-29] MEDS: CETIRIZINE HCL 5 MG TABLET PO SCH (07:58)
[2022-10-29] MEDS: ENOXAPARIN SODIUM 40 MG/0.4 ML SYRINGE SQ SCH (07:58)
[2022-10-29] MEDS: METOCLOPRAMIDE 10 MG TABLET PO SCH ×3 (07:58→16:15)
[2022-10-29] MEDS: POLYETHYLENE GLYCOL 3350 17 GM POWD.PACK PO SCH (07:58)
[2022-10-29] MEDS: METOPROLOL TARTRATE 25 MG TAB PO SCH (07:59)
[2022-10-29] MEDS: AMLODIPINE 5 MG TAB PO SCH (07:59)
[2022-10-29 08:00] VITALS: BP 136/77
[2022-10-29] MEDS: LISINOPRIL 40 MG TABLET PO SCH (08:00)
[2022-10-29] MEDS: FLUTICASONE PROPIONATE 50MCG/SPRAY 16 GM BOTTLE EN SCH (08:07)
[2022-10-29 12:00] VITALS: BP 131/53
[2022-10-29 16:00] VITALS: BP 112/57
[2022-10-29 20:28] VITALS: BP 139/41
[2022-10-29 23:26] VITALS: BP 125/57
[2022-10-30] MEDS ORDERED: KETOROLAC 15MG/ML VIAL (15MG/ML) IV ONE
[2022-10-30 04:08] VITALS: BP 136/64
[2022-10-30] MEDS: 0.9%NACL 1000ML 1,000 ML IV SCH (05:00)
[2022-10-30] MEDS: INSULIN HUMULIN R 100 UNIT/ML 3ML SQ SCH ×4 (06:14→12:20)
[2022-10-30] MEDS: METOCLOPRAMIDE 10 MG TABLET PO SCH ×2 (06:41→11:26)
[2022-10-30 08:00] VITALS: BP 138/74
[2022-10-30] MEDS: ENOXAPARIN SODIUM 40 MG/0.4 ML SYRINGE SQ SCH (08:54)
[2022-10-30] MEDS: LISINOPRIL 40 MG TABLET PO SCH (08:56)
[2022-10-30] MEDS: AMLODIPINE 5 MG TAB PO SCH (08:56)
[2022-10-30] MEDS: METOPROLOL TARTRATE 25 MG TAB PO SCH (08:56)
[2022-10-30] MEDS: CETIRIZINE HCL 5 MG TABLET PO SCH (08:56)
[2022-10-30] MEDS: PANTOPRAZOLE 40 MG/VIAL IVP SCH (08:56)
[2022-10-30] MEDS: FLUTICASONE PROPIONATE 50MCG/SPRAY 16 GM BOTTLE EN SCH (08:57)
[2022-10-30] MEDS ORDERED: KETOROLAC 15MG/ML VIAL (15MG/ML) IM PRN (09:30)
[2022-10-30] MEDS ORDERED: INSU100V12 SQ (11:18)
[2022-10-30] MEDS ORDERED: INSU100V SQ (11:18)
[2022-10-30 12:00] VITALS: BP 135/57
== END 2022-10-30 15:30 | disposition home or self-care (01) | DRG 73 ==
LOC: EDH 15:11 → EDHIP 19:36 → OBSVTOIN 19:36 → 3BH 21:41
PROVIDERS: ADMIT Hospitalist; ATTEND Hospitalist
DX: E11.43 Type 2 diabetes mellitus with diabetic autonomic (poly)neuropathy (principal); E43 Unspecified severe protein-calorie malnutrition; Z68.41 Body mass index [BMI] 40.0-44.9, adult; E87.6 Hypokalemia; E86.0 Dehydration; E78.00 Pure hypercholesterolemia, unspecified; E83.42 Hypomagnesemia; I10 Essential (primary) hypertension; K59.00 Constipation, unspecified; E83.51 Hypocalcemia; M19.90 Unspecified osteoarthritis, unspecified site; M25.512 Pain in left shoulder; E66.01 Morbid (severe) obesity due to excess calories; K31.84 Gastroparesis; Z79.4 Long term (current) use of insulin; Z82.49 Family history of ischemic heart disease and other diseases of the circulatory system; Z83.3 Family history of diabetes mellitus; Z91.14 Patient's other noncompliance with medication regimen; Z88.0 Allergy status to penicillin; Z88.2 Allergy status to sulfonamides; Z88.8 Allergy status to other drugs, medicaments and biological substances
CPT/HCPCS: 36415; 73030; 74021; 80048; 80053; 81001; 82040; 82607; 82728; 82746; 82948; 83036; 83540; 83550; 83605; 83690; 83735; 84145; 84155; 84439; 84443; 84481; 84484; 85025; 85027; 85651; 86140; 87040; 93005; 97039; C9113; G0378; J1650; J1815; J1885; J2405; J2765; J3475; J7030